=== PATIENT | male | born 1965 | race Caucasian/White ===

== ENCOUNTER → 2016-12-09 | Outpatient (CLI) | payer BC ==
[~2016-12-09] MED LIST: ATOR10TA82 PO; GEMF600T3 PO; OXYC5TAB PO
[2016-12-09 13:32] LABS: ESTIMATED AVERAGE GLUCOSE 134 mg/dl; HA1C FLAG Normal (Normal)
[2016-12-09 14:42] LABS: ALT/SGPT 53 U/L (12-78); BLOOD UREA NITROGEN 14 mg/dl (7-18); BUN/CREATININE RATIO 9.9 (10-20); CARBON DIOXIDE 28 mmol/L (21-32); CHLORIDE 105 mmol/L (98-107); CHOLESTEROL 186 mg/dl (0-200); GLUCOSE 98 mg/dl (70-99); SODIUM 142 mmol/L (136-145); TRIGLYCERIDES 157 mg/dl (0-150); VERY LOW DENSITY LIPOPROT CALC 31 mg/dl
[2016-12-09 14:52] LABS: CHOLESTEROL/HDL RATIO 6.6; HDL CHOLESTEROL 28 mg/dl; LDL CHOLESTEROL CALCULATED 127 mg/dl
[2016-12-09 14:59] LABS: CALCIUM 9.3 mg/dl (8.5-10.1)
== END | disposition home or self-care (01) ==
LOC: C.LABMFLN 10:46
PROVIDERS: ATTEND Family Medicine
DX: E78.5 Hyperlipidemia, unspecified (principal); R73.01 Impaired fasting glucose; M51.9 Unspecified thoracic, thoracolumbar and lumbosacral intervertebral disc disorder

== ENCOUNTER → 2017-10-27 | Outpatient (CLI) | payer BC ==
[2017-10-27 12:59] LABS: HEMOGLOBIN A1C 6.4 % (4.5-5.6)
[2017-10-27 13:39] LABS: ALT/SGPT 36 U/L (12-78); BLOOD UREA NITROGEN 18 mg/dl (7-18); CALCIUM 8.6 mg/dl (8.5-10.1); CARBON DIOXIDE 29 mmol/L (21-32); CHOLESTEROL 196 mg/dl (0-200); CREATININE 1.37 mg/dl (0.60-1.40); GLUCOSE 100 mg/dl (70-99); POTASSIUM 3.8 mmol/L (3.5-5.1); SODIUM 139 mmol/L (136-145)
[2017-10-27 13:42] LABS: LDL CHOLESTEROL (DIRECT) 134 mg/dl
== END | disposition home or self-care (01) ==
LOC: C.LABMFLN 07:16
PROVIDERS: ATTEND Family Medicine
DX: E78.00 Pure hypercholesterolemia, unspecified (principal); R73.01 Impaired fasting glucose